=== PATIENT | male | born 1980 | race Caucasian/White ===

== ENCOUNTER → 2023-09-14 | Emergency (ER) | payer OTHER ==
[~2023-09-14] MED LIST: DOXYCYCLINE 100 MG CAP PO ONE; SMZ./TMP. 800/160 MG TABLET ONE
--- NOTE | 2023-09-14 16:40 | ER ---
Nurse's Notes [facility] Name: Jamey Souza Jr Age: 43 yrs Sex: Male : 1980 Arrival Date: 09/14/2023 Time: 15:51 Bed [id number] Private MD: Diagnosis: Cellulitis of left lower limb Presentation: 09/14 16:28 Chief complaint: Patient states: has sore on left side of calf X 3 weeks, was sent from [facility] for antibiotics , it comes and goes, it's itchy and schwartz sometimes, there's spots on the back of my neck also. Coronavirus screen: At this time, the client does not indicate any symptoms associated with coronavirus-19. Ebola Screen: Patient negative for fever greater than or equal to 101.5 degrees Fahrenheit, and additional compatible Ebola Virus Disease symptoms Patient denies exposure to infectious person. Patient denies travel to an Ebola-affected area in the 21 days before illness onset. No symptoms or risks identified at this time. Initial Sepsis Screen: Does the patient meet any 2 criteria? No. Patient's initial sepsis screen is negative. Does the patient have a suspected source of infection? No. Patient's initial sepsis screen is negative. Risk Assessment: Do you want to hurt yourself or someone else? Patient reports no desire to harm self or others. 16:28 Method Of Arrival: Ambulatory 16:35 Acuity: LYLE 4 Triage Assessment: 16:57 General: Appears in no apparent distress. Behavior is calm, cooperative. iw Historical: - Allergies: 16:29 No Known Allergies; iw - Home Meds: 16:29 None [Active]; iw - PMHx: 16:29 Chronic pain; iw - Immunization history:: Adult Immunizations up to date. - Social history:: Smoking status: Reported history of juuling and/or vaping. - Family history:: not pertinent. - Hospitalizations: : No recent hospitalization is reported. Screenin:57 [facility] ED Fall Risk Assessment (Adult) Score/Fall Risk Level 0 - 2 = Low Risk. Abuse iw screen: Denies threats or abuse. Denies injuries from another. Nutritional screening: No deficits noted. Tuberculosis screening: No symptoms or risk factors identified. Assessment: 16:40 General: Appears in no apparent distress. Behavior is calm, cooperative. iw 16:40 Pain: Complains of pain in left leg. Neuro: Level of Consciousness is awake, alert, iw obeys commands, Oriented to person, place, time, situation, Moves all extremities. Full function. Cardiovascular: Patient's skin is warm and dry. Respiratory: Respiratory effort is even, unlabored, Respiratory pattern is regular. Derm: Rash noted that is on lateral aspect of left calf. Musculoskeletal: Range of motion: intact in all extremities. Vital Signs: 16:28 BP 127 / 86; Pulse 106; Resp 18; Temp 98.9; Pulse Ox 98% on R/A; Weight 72.57 kg; iw Height 5 ft. 6 in. ; 16:28 Body Mass Index 25.82 (72.57 kg, 167.64 cm) iw ED Course: 15:56 Patient arrived in ED. mg5 16:11 Paulie Swanson MD is Attending Physician. rn 16:35 Esperanza Leblanc RN is Primary Nurse. iw 16:36 Triage completed. iw 16:40 Patient has correct armband on for positive identification. Provided Education on: . iw 16:50 Arm band placed on. iw 16:55 No provider procedures requiring assistance completed. Patient did not have IV access iw during this emergency room visit. Administered Medications: 16:58 Drug: Trimethoprim-Sulfamethoxazole PO (160 mg-800 mg (DS) 1 tablet PO once Route: PO; iw 16:59 Follow up: Response: No adverse reaction iw 16:58 Drug: Doxycycline PO 100 mg PO once Route: PO; iw 16:59 Follow up: Response: No adverse reaction iw Medication: 16:40 VIS not applicable for this client. iw Outcome: 16:40 Discharge ordered by . rn 16:57 Discharged to home ambulatory, iw 16:57 Condition: good 16:57 Discharge instructions given to patient, Instructed on discharge instructions, follow up and referral plans. Demonstrated understanding of instructions, follow-up care, medications, Prescriptions given X 2, 16:58 Patient left the ED. iw Signatures: Esperanza Leblanc RN RN Paulie Swanson MD MD rn [place], [place] mg5 Corrections: (The following items were deleted from the chart) 16:30 16:29 PMHx: chonic pain; iw iw 09/15 09:06 02/ 16:40 General: Appears in no apparent distress. iw iw
--- NOTE | 2023-09-14 16:40 | EDPHYS ---
Physician Documentation [facility] Name: Jamey Souza Jr Age: 43 yrs Sex: Male : 1980 Arrival Date: 09/14/2023 Time: 15:51 Bed [id number] Private MD: ED Physician Paulie Swanson HPI: 09/14 16:37 This 43 yrs old Male presents to ER via Ambulatory with complaints of Wound Check. rn 16:37 The patient presents with cellulitis of the left leg. Onset: The symptoms/episode rn began/occurred 2 week(s) ago. Possible cause(s): unknown. Associated signs and symptoms: Pertinent positives: erythema, swelling, Pertinent negatives: fever. Modifying factors: the symptoms are alleviated by nothing, the symptoms are aggravated by touching. Severity of symptoms: At their worst the symptoms were mild, in the emergency department the symptoms are unchanged. The patient has experienced similar episodes in the past. Patient reports multiple staph infections in the past, recently had a scrape to his left lower leg with redness and purulence. Has been using Neosporin and keeping it clean but not resolving. No fever or chills. Does not feel ill but came for antibiotics.. Historical: - Allergies: 16:29 No Known Allergies; iw - Home Meds: 16:29 None [Active]; iw - PMHx: 16:29 Chronic pain; iw - Immunization history:: Adult Immunizations up to date. - Social history:: Smoking status: Reported history of juuling and/or vaping. - Family history:: not pertinent. - Hospitalizations: : No recent hospitalization is reported. ROS: 16:37 Constitutional: Negative for fever, chills, and weight loss, MS/Extremity: Positive for rn cellulitis to the left lower extremity Exam: 16:37 Constitutional: This is a well developed, well nourished patient who is awake, alert, rn and in no acute distress. MS/ Extremity: Pulses equal, no cyanosis. Neurovascular intact. Full, normal range of motion. Equal circumference. Left lower extremity pretibial region on the lateral side with 5 cm area of cellulitis with mild induration, no fluctuance. No streaking proximally. No abscess. Vital Signs: 16:28 BP 127 / 86; Pulse 106; Resp 18; Temp 98.9; Pulse Ox 98% on R/A; Weight 72.57 kg; iw Height 5 ft. 6 in. ; 16:28 Body Mass Index 25.82 (72.57 kg, 167.64 cm) iw MDM: 16:11 Patient medically screened. rn 16:37 Differential diagnosis: cellulitis. Data reviewed: vital signs, nurses notes, and as a rn result, I will discharge patient. Counseling: I had a detailed discussion with the patient and/or guardian regarding the historical points, exam findings, and any diagnostic results supporting the discharge/admit diagnosis, the need for outpatient follow up, to return to the emergency department if symptoms worsen or persist or if there are any questions or concerns that arise at home. Special discussion: I discussed with the patient/guardian in detail that at this point there is no indication for admission to the hospital. It is understood, however, that if the symptoms persist or worsen the patient needs to return immediately for re-evaluation. Administered Medications: 16:58 Drug: Trimethoprim-Sulfamethoxazole PO (160 mg-800 mg (DS) 1 tablet PO once Route: PO; iw 16:59 Follow up: Response: No adverse reaction iw 16:58 Drug: Doxycycline PO 100 mg PO once Route: PO; iw 16:59 Follow up: Response: No adverse reaction iw Disposition Summary: 09/14/23 16:40 Discharge Ordered Notes: Location: Home rn Problem: an ongoing problem rn Symptoms: are unchanged rn Condition: Stable rn Diagnosis - Cellulitis of left lower limb rn Followup: rn - With: Private Physician - When: As needed - Reason: Recheck today's complaints, Re-evaluation by your physician Discharge Instructions: - Discharge Summary Sheet rn - Cellulitis, Adult rn Forms: - Medication Reconciliation Form rn - Thank You Letter rn - 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
[2023-09-14 17:26] VITALS: BP 127/86; TEMP 98.9; O2SAT 98
== END ==
LOC: ER 15:51
DX: L03.116 Cellulitis of left lower limb (principal)
CPT/HCPCS: 99283